=== PATIENT | male | born 1955 | race Caucasian/White ===

== ENCOUNTER 2020-05-18 14:31 | Emergency (ER) | payer OTHER, MEDICARE ==
[2020-05-18] MEDS ORDERED: CEFTRIAXONE SODIUM 1 GM ONE (15:01)
[2020-05-18] MEDS ORDERED: SODIUM CHLORIDE 0.9% 50 ML IV ONE (15:02)
== END 2020-05-18 16:55 | disposition home or self-care (01) ==
LOC: EDH 14:31
DX: L03.116 Cellulitis of left lower limb (principal); I10 Essential (primary) hypertension; Z87.891 Personal history of nicotine dependence
CPT/HCPCS: 93970; 96374; 99284; J0696